=== PATIENT | female | born 1960 | race Caucasian/White ===

== ENCOUNTER → 2019-05-13 | Outpatient (CLI) | payer OTHER | LOC: HYPER 06:44 | DX: T63.331A Toxic effect of venom of brown recluse spider, accidental (unintentional), initial encounter (principal); S30.861A Insect bite (nonvenomous) of abdominal wall, initial encounter; Y92.89 Other specified places as the place of occurrence of the external cause ==

== ENCOUNTER → 2019-05-20 | Outpatient (CLI) | payer OTHER | LOC: HYPER 06:44 | DX: S30.861D Insect bite (nonvenomous) of abdominal wall, subsequent encounter (principal); I10 Essential (primary) hypertension; W57.XXXD Bitten or stung by nonvenomous insect and other nonvenomous arthropods, subsequent encounter ==

== ENCOUNTER → 2019-06-03 | Outpatient (CLI) | payer OTHER | LOC: HYPER 06:47 | DX: T63.331D Toxic effect of venom of brown recluse spider, accidental (unintentional), subsequent encounter (principal); S31.101D Unspecified open wound of abdominal wall, left upper quadrant without penetration into peritoneal cavity, subsequent encounter; X58.XXXD Exposure to other specified factors, subsequent encounter ==